=== PATIENT | female | born 1950 | race Caucasian/White ===

== ENCOUNTER 2016-11-22 09:47 | Emergency (ER) | payer MEDICARE, BC ==
[2016-11-22] MEDS ORDERED: Aspirin 81 MG Tab.Chew PO ONE (10:12)
[2016-11-22] MEDS ORDERED: Nitroglycerin 0.4 MG Tab.SL SL ONE (11:01)
[2016-11-22] MEDS ORDERED: LORazepam 0.5 MG Tab PO ONE (11:32)
--- NOTE | 2016-11-22 11:38 | CR ---
Chest 1V Frontal HISTORY: No Clinical Info FINDINGS: Heart size within normal limits. Pulmonary vasculature within normal limits. No evidence fo r focal consolidation or cardiopulmonary process. IMPRESSION: No radiographic evidence for acute cardiopulmonary process.
[2016-11-22 11:50] VITALS: BP 129/80
--- NOTE | 2016-11-22 12:24 | EDM.PDOC ---
ED HPI GENERAL MEDICAL PROBLEM - General Chief Complaint: Chest Pain Stated Complaint: RAPID HEARTBEAT,LIGHTHEADED Time Seen by Provider: 11/22/16 10:10 Source of Information: Reports: Patient, Family History Limitations: Reports: No Limitations - History of Present Illness INITIAL COMMENTS - FREE TEXT/NARRATIVE: pt arrived with tightness in her chest. She has some tightness in her head. She has been alot of stress in the last week to 10 days. Duration: Day(s):, Other ( started on saturday. ) Location: Reports: Chest Associated Symptoms: Reports: Other ( chest tightness. ) Chest Pain Score (Numeric/FACES): 3 - Related Data Allergies Allergy/AdvReac Type Severity Reaction Status Date / Time atorvastatin [From Lipitor] AdvReac Nausea Verified 11/22/16 10:57 levofloxacin AdvReac Nausea and Verified 11/22/16 10:57 Vomiting metronidazole AdvReac Nausea and Verified 11/22/16 10:57 Vomiting Home Meds: Home Meds Acetaminophen with Codeine [Tylenol with Codeine #4 Tablet] 1 tab PO Q4H PRN [History] Aspirin 1 tab PO DAILY 11/22/16 [History] Chlorthalidone 1 tab PO DAILY 11/22/16 [History] Cyclobenzaprine [Flexeril] 10 mg PO TID PRN 11/22/16 [History] Estradiol 0.5 mg PO DAILY 11/22/16 [History] Gabapentin [Neurontin] 900 mg PO BEDTIME 11/22/16 [History] Lisinopril [Prinivil] 1 tab PO DAILY 11/22/16 [History] Methylcellulose [Citrucel] 1 tbsp PO DAILY 11/22/16 [History] Naproxen 1 tab PO BID 11/22/16 [History] Phenazopyridine [Pyridium] 1 tab PO TID PRN 11/22/16 [History] Ranitidine [Zantac] 1 tab PO BID 11/22/16 [History] Simvastatin [Zocor] 10 mg PO DAILY 11/22/16 [History] diphenhydrAMINE [Benadryl] 1 tab PO ASDIRECTED PRN 11/22/16 [History] metFORMIN [Glucophage] 1 tab PO BID 11/22/16 [History] rOPINIRole [Requip] 0.5 mg PO BEDTIME 11/22/16 [History] Past Medical History HEENT History: Reports: Impaired Vision Cardiovascular History: Reports: Hypertension Gastrointestinal History: Reports: Irritable Bowel Syndrome Genitourinary History: Reports: UTI, Recurrent 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: Neurological History: Reports: Migraines Endocrine/Metabolic History: Reports: Diabetes, Type II Oncologic (Cancer) History: Reports: Basal Cell Carcinoma, Other (See Below) Other Oncologic History: melanoma on back - Past Surgical History GI Surgical History: Reports: Appendectomy Female Surgical History: Reports: Section, Hysterectomy Musculoskeletal Surgical History: Reports: Other (See Below) Other Musculoskeletal Surgeries/Procedures:: thumb joint surgery Social & Family History - Tobacco Use Smoking Status *Q: Never Smoker - Alcohol Use Days Per Week of Alcohol Use: 3 Number of Drinks Per Day: 1 Total Drinks Per Week: 3 - Recreational Drug Use Recreational Drug Use: No ED ROS GENERAL - Review of Systems Review Of Systems: See Below Constitutional: Reports: No Symptoms HEENT: Reports: No Symptoms Respiratory: Reports: Other ( tightness in the chest. ) Cardiovascular: Reports: Palpitations Endocrine: Reports: No Symptoms GI/Abdominal: Reports: No Symptoms : Reports: No Symptoms Musculoskeletal: Reports: No Symptoms Skin: Reports: No Symptoms ED EXAM, GENERAL - Physical Exam Exam: See Below Free Text/Narrative:: pt arrived with tightness in her chest. This has been coming and going. She has been quite stressed this past week. Exam Limited By: No Limitations General Appearance: Alert, Anxious, Mild Distress Ears: Normal TMs Nose: Normal Inspection Throat/Mouth: Normal Inspection Head: Atraumatic Neck: Normal Inspection Respiratory/Chest: No Respiratory Distress Cardiovascular: Regular Rate, Rhythm GI/Abdominal: Soft, Non-Tender Rectal (Female) Exam: Deferred Extremities: Normal Inspection Neurological: Alert, Oriented, Normal Cognition Psychiatric: Normal Affect Course - Vital Signs Last Recorded V/S: Last Vital Signs Temp 36.4 C 11/22/16 10:07 Pulse 66 11/22/16 11:26 Resp 20 11/22/16 11:26 BP 129/80 11/22/16 11:26 Pulse Ox 95 11/22/16 11:26 - Orders/Labs/Meds Orders: Active Orders 24 hr Category Date Time Status EKG Documentation Completion [RC] ASDIRECTED Care 11/22/16 10:12 Active UA W/MICROSCOPIC [URIN] Urgent Lab 11/22/16 10:11 Uncollected EKG 12 Lead [EK] Routine Ther 11/22/16 10:12 Ordered Labs: Laboratory Tests 11/22/16 11/22/16 11/22/16 Range/Units 10:25 10:25 10:25 WBC 4.8 (4.5-11.0) K/uL RBC 4.17 (3.30-5.50) M/uL Hgb 12.5 (12.0-15.0) g/dL Hct 37.0 (36.0-48.0) % MCV 89 (80-98) fL MCH 30 (27-31) pg MCHC 34 (32-36) % Plt Count 198 (150-400) K/uL Neut % (Auto) 51 (36-66) % Lymph % (Auto) 35 (24-44) % [place] % (Auto) 9 H (2-6) % Eos % (Auto) 4 (2-4) % Baso % (Auto) 0 (0-1) % Sodium 136 L (140-148) mmol/L Potassium 3.4 L (3.6-5.2) mmol/L Chloride 102 (100-108) mmol/L Carbon Dioxide 27 (21-32) mmol/L Anion Gap 10.4 (5.0-14.0) mmol/L BUN 23 H (7-18) mg/dL Creatinine 1.0 (0.6-1.0) mg/dL Est Cr Clr Drug Dosing 47.14 mL/min Estimated GFR (MDRD) 55 L (>60) Glucose 149 H (74-106) mg/dL Calcium 8.9 (8.5-10.1) mg/dL Total Bilirubin 0.4 (0.2-1.0) mg/dL AST 23 (15-37) U/L ALT 19 (12-78) U/L Alkaline Phosphatase 45 L (46-116) U/L Creatine Kinase 113 (26-192) U/L Troponin I < 0.017 (0.000-0.056) ng/mL Total Protein 6.8 (6.4-8.2) g/dL Albumin 3.6 (3.4-5.0) g/dL Globulin 3.2 (2.3-3.5) g/dL Albumin/Globulin Ratio 1.1 L (1.2-2.2) Meds: Medications Discontinued Medications Generic Name Dose Route Start Last Admin Trade Name Deejay PRN Reason Stop Dose Admin Aspirin 324 mg 11/22/16 10:12 11/22/16 10:27 Aspirin PO 11/22/16 10:13 324 mg ONETIME ONE Administration Lorazepam 0.5 mg 11/22/16 11:32 11/22/16 11:44 Ativan PO 11/22/16 11:33 0.5 mg ONETIME ONE Administration Nitroglycerin 0.4 mg 11/22/16 11:01 11/22/16 11:06 Nitrostat SL 11/22/16 11:02 0.4 mg ONETIME ONE Administration - Re-Assessments/Exams Free Text/Narrative Re-Assessment/Exam: 11/22/16 12:39 pt arrived with tightness in her chest. Her ekg was neg. her cardiac enzymes were normal. Her chest xray did not reveal any infiltrate. Departure - Departure Time of Disposition: 12:24 Disposition: Home, Self-Care 01 Condition: Fair Clinical Impression: Chest pain, atypical Instructions: Nonspecific Chest Pain, [id number] Referrals: Osiel Chavez MD [Primary Care Provider] - Forms: ED Department Discharge Care Plan Goals: rtc for a exercise cardiolyte, ativan .5 1/2 to 1 tab q6h prn for anxiety. rtc if the heaviness should get worse. - My Orders Last 24 Hours: My Active Orders 11/22/16 10:11 UA W/MICROSCOPIC [URIN] Urgent 11/22/16 10:12 EKG Documentation Completion [RC] ASDIRECTED EKG 12 Lead [EK] Routine - Assessment/Plan Last 24 Hours: My Active Orders 11/22/16 10:11 UA W/MICROSCOPIC [URIN] Urgent 11/22/16 10:12 EKG Documentation Completion [RC] ASDIRECTED EKG 12 Lead [EK] Routine
== END 2016-11-22 12:35 | disposition home or self-care (01) ==
LOC: JP.ED 09:47
DX: R07.89 Other chest pain (principal); H54.7 Unspecified visual loss; I10 Essential (primary) hypertension; E11.9 Type 2 diabetes mellitus without complications; G43.909 Migraine, unspecified, not intractable, without status migrainosus; Z88.8 Allergy status to other drugs, medicaments and biological substances; Z88.1 Allergy status to other antibiotic agents; Z79.899 Other long term (current) drug therapy; Z87.440 Personal history of urinary (tract) infections
CPT/HCPCS: 36415; 71010; 80053; 82550; 84484; 85025; 93005; 99285; A9270; 93010; 99284

== ENCOUNTER 2019-09-06 10:40 | Emergency (ER) | payer MEDICARE, BC, OTHER ==
[2019-09-06 11:00] VITALS: BP 187/58; PULSE 69
--- NOTE | 2019-09-06 11:35 | EDM.PDOC ---
ED HPI GENERAL MEDICAL PROBLEM - General Chief Complaint: Bite:Animal, Insect Stated Complaint: INSECT STING/BITE SATURDAY RIGHT HAND SWELLING Time Seen by Provider: 09/06/19 10:58 Source of Information: Reports: Patient History Limitations: Reports: No Limitations - History of Present Illness INITIAL COMMENTS - FREE TEXT/NARRATIVE: This patient who has a history of T2DM was stung by a bee on her right hand on Saturday. She denies problems until yesterday when the hand started to swelling. She reports increasing swelling and redness. Her hand is stiff and painful. She has pain in the forearm. She reports intense itching. She is not taking antihistamines. She denies systemic symptoms, or respiratory problems. Right Hand Pain Score (Numeric/FACES): 4 - Related Data Allergies Allergy/AdvReac Type Severity Reaction Status Date / Time atorvastatin [From Lipitor] AdvReac Nausea Verified 09/06/19 11:02 levofloxacin AdvReac Nausea and Verified 09/06/19 11:02 Vomiting metronidazole AdvReac Nausea and Verified 09/06/19 11:02 Vomiting Home Meds: Home Meds Aspirin 1 tab PO DAILY 11/22/16 [History] Chlorthalidone 25 mg PO DAILY 11/22/16 [History] Cyclobenzaprine [Flexeril] 10 mg PO TID PRN 11/22/16 [History] Estradiol 0.5 mg PO DAILY 11/22/16 [History] Gabapentin [Neurontin] 900 mg PO BEDTIME 11/22/16 [History] Lisinopril [Prinivil] 20 mg PO DAILY 11/22/16 [History] Methylcellulose [Citrucel] 1 tbsp PO DAILY 11/22/16 [History] Naproxen 1 tab PO BID 11/22/16 [History] Phenazopyridine [Pyridium] 1 tab PO TID PRN 11/22/16 [History] Simvastatin [Zocor] 10 mg PO DAILY 11/22/16 [History] diphenhydrAMINE [Benadryl] 1 tab PO ASDIRECTED PRN 11/22/16 [History] metFORMIN [Glucophage] 1,000 mg PO BID 11/22/16 [History] Pantoprazole Sodium [Protonix] 40 mg PO DAILY 09/06/19 [History] Past Medical History HEENT History: Reports: Glaucoma, Impaired Vision Cardiovascular History: Reports: Hypertension Gastrointestinal History: Reports: Irritable Bowel Syndrome Genitourinary History: Reports: UTI, Recurrent 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: Neurological History: Reports: Migraines Endocrine/Metabolic History: Reports: Diabetes, Type II Oncologic (Cancer) History: Reports: Basal Cell Carcinoma, Other (See Below) Other Oncologic History: melanoma on back - Past Surgical History GI Surgical History: Reports: Appendectomy Female Surgical History: Reports: Section, Hysterectomy Musculoskeletal Surgical History: Reports: Other (See Below) Other Musculoskeletal Surgeries/Procedures:: thumb joint surgery Social & Family History - Tobacco Use Smoking Status *Q: Never Smoker - Caffeine Use Caffeine Use: Reports: Coffee - Recreational Drug Use Recreational Drug Use: No ED ROS GENERAL - Review of Systems Review Of Systems: See Below Constitutional: Denies: Fever, Chills HEENT: Denies: Throat Swelling Respiratory: Denies: Shortness of Breath, Wheezing, Cough Cardiovascular: Denies: Chest Pain, Dyspnea on Exertion GI/Abdominal: Denies: Nausea, Vomiting Skin: Reports: Other (right hand is swollen, red and painful) Psychiatric: Reports: No Symptoms Immunologic: Denies: Anaphylaxis ED EXAM, ANIMAL BITE - Physical Exam Exam: See Below Exam Limited By: No Limitations General Appearance: Alert, WD/WN, No Apparent Distress Extremities: Other (right hand is puffy. No bee stinger found. Her hand is warm and redness is very diffuse. No lymphangitis. ) Neurological: Alert, Oriented. No: Sensory/Motor Deficit Course - Vital Signs Text/Narrative:: She was seen and examined. She has normal vital signs and no resp distress. She has a localized allergic reaction without systemic signs or symptoms. She is immunodepressed because of T2DM so I am covering her with antibiotics, but feel she will benefit most from elevation, ice and antihistamines. She will follow up with her primary care provider as needed. Last Recorded V/S: Last Vital Signs Temp 36.2 C 09/06/19 11:00 Pulse 69 09/06/19 11:00 Resp 18 09/06/19 11:00 BP 187/58 H 09/06/19 11:00 Pulse Ox 97 09/06/19 11:00 Departure - Departure Time of Disposition: 11:30 Disposition: Home, Self-Care 01 Condition: Good Clinical Impression: Swelling of right hand - Discharge Information *PRESCRIPTION DRUG MONITORING PROGRAM REVIEWED*: No *COPY OF PRESCRIPTION DRUG MONITORING REPORT IN PATIENT DARSHAN: No Referrals: Osiel Chavez MD [Primary Care Provider] - Forms: ED Department Discharge Additional Instructions: Elevate right hand at level of heart. Use an ice pack periodically for 20 minutes at a time to reduce swelling and discomfort. Take Benadryl at night and Claritin (or Zyrtec) during the day for itching. Take Keflex as directed as a precaution for infection. See your doctor if you are concerned or return to the ER as needed for problems. Sepsis Event Note (ED) - Evaluation Sepsis Screening Result: No Definite Risk - Focused Exam Vital Signs: Vital Signs Temp Pulse Resp BP Pulse Ox 09/06/19 11:00 36.2 C 69 18 187/58 H 97 09/06/19 10:58 36.2 C 69 18 187/58 H 97
== END 2019-09-06 11:59 | disposition home or self-care (01) ==
LOC: JP.ED 10:40
DX: M79.89 Other specified soft tissue disorders (principal); E11.9 Type 2 diabetes mellitus without complications; I10 Essential (primary) hypertension; G43.909 Migraine, unspecified, not intractable, without status migrainosus; Z88.8 Allergy status to other drugs, medicaments and biological substances; Z88.1 Allergy status to other antibiotic agents; Z79.82 Long term (current) use of aspirin; Z79.899 Other long term (current) drug therapy
CPT/HCPCS: 99282

== ENCOUNTER 2020-05-09 06:57 | Day surgery (SDC) | payer MEDICARE, BC, OTHER ==
[2020-05-09] MEDS ORDERED: Dextrose 5%-Lactated Ringers 1,000 ML IV SCH (07:45)
[2020-05-09 09:50] VITALS: BP 153/84; PULSE 60
--- NOTE | 2020-05-11 11:20 | OR ---
DATE OF PROCEDURE: 05/09/2020 SURGEON: Samuel Barrios MD PREOPERATIVE DIAGNOSIS: Persistent globus sensation. POSTOPERATIVE DIAGNOSES: 1. Persistent globus sensation associated with small hiatal hernia, but with wide-open esophagogastric junction and moderately active gastroesophageal reflux disease. 2. Mild patchy antral gastritis. OPERATIVE PROCEDURE: Upper gastrointestinal endoscopy with: 1. Biopsies of esophagogastric junction for histologic evaluation. 2. Biopsies of antrum for CLOtest. ANESTHESIA: IV sedation. INDICATIONS FOR PROCEDURE: A 70-year-old female presenting with some protracted history of persistent globus sensation. She presently is on Protonix and in the past has had severe enough throat symptoms to require some short courses of steroids. She does have a history of type 2 diabetes mellitus, but does not give history suggestive of a delayed gastric emptying. In the past, she has seen Dr. Christian of the ENT department who felt that her reflux disease is likely contributing to the patient's symptoms. For further evaluation, the patient is to undergo an upper GI endoscopy with biopsies as indicated. Potential risks including bleeding and perforation were discussed, and the patient wishes to proceed. DETAILS OF PROCEDURE: The patient was taken to the operating room and placed in a left lateral decubitus position. IV sedation was administered, after which the upper GI endoscope was passed orally through the length of the esophagus, into the stomach with retroflexion view of the fundus, thereafter through the pyloric channel and into the junction of the third and fourth portions of the duodenum. Findings included some mild redness in the hypopharynx and larynx. Otherwise, there were no gross anatomic abnormalities visualized in this area. The upper esophageal sphincter and esophageal body were unremarkable. At the EG junction, the patient had a roughly 2 cm hiatal hernia. This was associated with an essentially wide-open gastroesophageal junction as viewed from the distal esophagus. This was associated with some edema, friability, and slight upward extension of gastroesophageal junction mucosal line above the upper gastric folds. No erosions, ulcers, or stricturing was noted and there was no plaquing or other suggestion of neoplastic changes. Within the stomach, retroflexion confirmed the small hiatal hernia. Otherwise, there were some patchy reddened areas in the antrum without erosions or ulcers. The pyloric channel was wide open. The visualized portions of the duodenum were unremarkable. At this point, biopsies were obtained from the antrum and sent for CLOtest for H. pylori. Multiple circumferential biopsies targeting the area of columnar mucosa were obtained and sent for histologic evaluation. Minimal bleeding from the biopsy sites was seen and there were no evident complications. One additional note is that again there was no retained food or significant bile within the stomach, i.e. no endoscopic evidence of delayed gastric emptying was present. The plan at this point will be to have the patient follow up with Dr. Christian as has been previously scheduled next Saturday. If there is no other explanation or obvious treatment for the patient's reflux, the next step given the significance of her symptoms would be a Flakito fundoplication. We will see the patient the following Saturday, i.e. on 05/18/2020 after the appointment with Dr. Christian. Samuel Barrios MD /[id number]
== END 2020-05-09 10:20 | disposition home or self-care (01) ==
LOC: JP.SDS 06:57
PROVIDERS: ATTEND Surgery
DX: K21.00 Gastro-esophageal reflux disease with esophagitis, without bleeding (principal); K44.9 Diaphragmatic hernia without obstruction or gangrene; K29.50 Unspecified chronic gastritis without bleeding; K22.8 Other specified diseases of esophagus; I10 Essential (primary) hypertension; E78.5 Hyperlipidemia, unspecified; E11.9 Type 2 diabetes mellitus without complications; Z88.1 Allergy status to other antibiotic agents
CPT/HCPCS: 43239; 87081; J7121

== ENCOUNTER 2020-05-24 08:15 | Inpatient (IN) | payer MEDICARE, BC, OTHER ==
[2020-06-03] MEDS ORDERED: Acetaminophen 500 MG Tab PO ONE (10:00)
[2020-06-03] MEDS ORDERED: Scopolamine 1.5 MG Transdermal Patch TRDERM SCH (10:00)
[2020-06-03] MEDS ORDERED: Dextrose 5%-Lactated Ringers 1,000 ML IV SCH (10:30)
[2020-06-03] MEDS ORDERED: Midazolam 1 MG/ML 2 ML SDV ONE (10:33)
[2020-06-03] MEDS ORDERED: fentaNYL 100 MCG/2 ML SDV ONE ×3 (10:33→12:54)
[2020-06-03] MEDS ORDERED: Propofol 200 MG/20 ML SDV ONE (10:33)
[2020-06-03] MEDS ORDERED: Neostigmine Methylsulfate 1 MG/ML 5 ML Syringe ONE (10:34)
[2020-06-03] MEDS ORDERED: Ondansetron 4 MG/2 ML SDV ONE (10:34)
[2020-06-03] MEDS ORDERED: Rocuronium 50 MG/5 ML Vial ONE (10:34)
[2020-06-03] MEDS ORDERED: Glycopyrrolate 0.2 MG/ML 5 ML MDV ONE (10:34)
[2020-06-03] MEDS ORDERED: Dexamethasone 4 MG/ML SDV ONE (10:34)
[2020-06-03] MEDS ORDERED: Succinylcholine 200 MG/10 ML MDV ONE (10:34)
[2020-06-03] MEDS ORDERED: Albuterol/Ipratropium 3.0-0.5 MG/3 ML Neb Soln NEB ONE (11:00)
[2020-06-03] MEDS ORDERED: cefOXitin 2 GM in Sodium Chloride 0.9% 50 ML IV ONE (11:30)
[2020-06-03] MEDS ORDERED: Ketamine 50 MG in Sodium Chloride 0.9% 49.5 ML IV SCH (11:30)
[2020-06-03] MEDS ORDERED: Ketamine 500 MG/5 ML MDV IV SCH (11:30)
[2020-06-03] MEDS ORDERED: Sugammadex Sodium 200 MG/2 ML VIAL ONE (13:19)
[2020-06-03] MEDS ORDERED: Glucose Gel 15 GM in 37.5 GM Tube PO PRN (13:40)
[2020-06-03] MEDS ORDERED: Glucagon,Human Recombinant 1 MG Vial IM PRN (13:40)
[2020-06-03] MEDS ORDERED: 50% Dextrose in Water 50 ML Syringe IVPUSH PRN (13:40)
[2020-06-03] MEDS ORDERED: Ondansetron 4 MG/2 ML SDV IVPUSH PRN (14:42)
[2020-06-03] MEDS ORDERED: Albuterol 8 GM Inhaler INH PRN (14:44)
[2020-06-03] MEDS ORDERED: HYDROmorphone 1 MG/ML Syringe IV PRN (15:00)
[2020-06-03] MEDS: HYDROmorphone 0.5 MG/0.5 ML Syringe IVPUSH PRN ×2 (15:19→19:56)
[2020-06-03] MEDS: Metoclopramide 10 MG/2 ML SDV IVPUSH SCH ×2 (15:53→21:00)
[2020-06-03] MEDS: Acetaminophen 325 MG Tab PO SCH ×2 (15:54→21:00)
[2020-06-03] MEDS: Magnesium Sulfate/Water 2 GM/50 ML BAG IV SCH ×2 (15:54→21:02)
[2020-06-03] MEDS: Pantoprazole 40 MG Vial IV SCH (15:54)
[2020-06-03] MEDS: metFORMIN 500 MG Tab PO SCH (17:01)
[2020-06-03] MEDS: Insulin Lispro 100 Unit/ML 3 ML KwikPen SUBCUT PRN ×2 (17:02→21:33)
[2020-06-03] MEDS: ceFAZolin 1 GM in Premix Bag 1 BAG IV SCH (18:11)
[2020-06-03] MEDS: CRANBERRY 500 MG PO SCH (20:47)
[2020-06-03] MEDS: Gabapentin 300 MG Cap PO SCH (20:47)
[2020-06-03] MEDS: Timolol Maleate 0.5% Ophth Soln 5 ML Bottle EYEBOTH SCH (20:48)
[2020-06-03] MEDS: Melatonin 3 MG Tab PO SCH (20:48)
[2020-06-04] MEDS: ceFAZolin 1 GM in Premix Bag 1 BAG IV SCH ×2 (02:38→09:03)
[2020-06-04] MEDS: Metoclopramide 10 MG/2 ML SDV IVPUSH SCH ×4 (04:32→22:04)
[2020-06-04] MEDS: Magnesium Sulfate/Water 2 GM/50 ML BAG IV SCH ×3 (04:32→16:21)
[2020-06-04] MEDS: Acetaminophen 325 MG Tab PO SCH ×4 (04:33→22:05)
[2020-06-04] MEDS: HYDROmorphone 0.5 MG/0.5 ML Syringe IVPUSH PRN ×2 (04:37→07:40)
[2020-06-04] MEDS: metFORMIN 500 MG Tab PO SCH ×2 (08:43→17:20)
[2020-06-04] MEDS: Aspirin 81 MG Tab.EC PO SCH (08:44)
[2020-06-04] MEDS: Chlorthalidone 25 MG Tab PO SCH (08:44)
[2020-06-04] MEDS: Hypromellose 0.3% Ophth Soln 15 ML Bottle EYEBOTH SCH ×2 (08:44→08:49)
[2020-06-04] MEDS: Estradiol 0.5 MG Tab PO SCH (08:45)
[2020-06-04] MEDS: CRANBERRY 500 MG PO SCH (08:45)
[2020-06-04] MEDS: Timolol Maleate 0.5% Ophth Soln 5 ML Bottle EYEBOTH SCH ×2 (08:46→20:01)
[2020-06-04] MEDS: Simvastatin 20 MG Tab PO SCH (08:46)
[2020-06-04] MEDS: Lisinopril 20 MG Tab PO SCH (08:46)
[2020-06-04] MEDS: Insulin Lispro 100 Unit/ML 3 ML KwikPen SUBCUT PRN ×2 (08:56→11:53)
[2020-06-04] MEDS: oxyCODONE 5 MG Tab PO PRN ×4 (09:24→22:15)
[2020-06-04] MEDS: Pantoprazole 40 MG Vial IV SCH (16:17)
[2020-06-04] MEDS ORDERED: diphenhydrAMINE 50 MG/ML SDV IVPUSH PRN (18:27)
[2020-06-04] MEDS ORDERED: diphenhydrAMINE 25 MG Cap PO PRN (18:28)
[2020-06-04] MEDS: Melatonin 3 MG Tab PO SCH (20:01)
[2020-06-04] MEDS: Gabapentin 300 MG Cap PO SCH (20:01)
[2020-06-05] MEDS: Acetaminophen 325 MG Tab PO SCH ×2 (03:05→10:22)
[2020-06-05] MEDS: oxyCODONE 5 MG Tab PO PRN ×2 (03:05→12:08)
[2020-06-05] MEDS: Metoclopramide 10 MG/2 ML SDV IVPUSH SCH ×2 (03:05→10:12)
[2020-06-05 07:25] VITALS: BP 132/68; PULSE 64
[2020-06-05] MEDS ORDERED: Magnesium Hydroxide 400 MG/5 ML Susp 30 ML Cup PO PRN (07:41)
[2020-06-05] MEDS: metFORMIN 500 MG Tab PO SCH (08:28)
[2020-06-05] MEDS: Estradiol 0.5 MG Tab PO SCH (08:29)
[2020-06-05] MEDS: Simvastatin 20 MG Tab PO SCH (08:29)
[2020-06-05] MEDS: Chlorthalidone 25 MG Tab PO SCH (08:29)
[2020-06-05] MEDS: Lisinopril 20 MG Tab PO SCH (08:30)
[2020-06-05] MEDS: Aspirin 81 MG Tab.EC PO SCH (08:31)
[2020-06-05] MEDS: Timolol Maleate 0.5% Ophth Soln 5 ML Bottle EYEBOTH SCH (08:31)
--- NOTE | 2020-06-06 12:00 | PN ---
DATE OF SERVICE: 06/04/2020 The patient is postop day 1 from laparoscopic Flakito fundoplication with augmentation of the crural repair with some mesh and excision of mediastinal lipoma. Overnight, she has had no significant problems. Blood sugars have come down nicely, and she will be continued on her metformin. Otherwise, she tolerated liquids overnight satisfactorily. We will go up to full liquid diet today and oral pain medications, and she maybe ready for discharge home tomorrow. Samuel Barriso MD /[id number]
--- NOTE | 2020-06-06 12:30 | DISCH ---
FINAL DIAGNOSES: 1. Large paraesophageal diaphragmatic hernia with gastroesophageal reflux disease refractory to medical management. 2. Mediastinal lipoma. 3. History of hypertension. 4. History of hyperlipidemia. 5. History of type 2 diabetes mellitus. 6. Degenerative disk disease requiring a lumbar spine decompression. 7. History of glaucoma. 8. Hypomagnesemia. OPERATIVE PROCEDURES: Done on 06/03, diagnostic laparoscopy with: 1. Flakito fundoplication with repair of paraesophageal diaphragmatic hernia with mesh. 2. Excision of mediastinal lipoma. SUMMARY: This is a 70-year-old female presenting with ongoing gastroesophageal reflux disease. In her case, this presents to the large extent as globus sensation as well as throat irritation. ENT has been consulted and the consensus is that we are dealing with a reflux disease. This was confirmed endoscopically recently as well. The patient does have a history of type 2 diabetes mellitus, but we are not getting any sense of impaired gastric emptying at least at this time. On the date of admission, after full discussion with providers and the patient and her , the patient underwent a laparoscopic Flakito fundoplication. The diaphragmatic hernia was fairly large and it was augmented with a dissolvable mesh. Mediastinal lipoma was similarly excised. Postoperatively, she has had no significant problems. She is tolerating full liquid diet which was begun now for 3 days[address] Follow up with Dr. Barrios at [facility] on 06/15/2020. She will be continuing her usual medications plus oxycodone 5 mg q.4 hours p.r.n. pain #40, Tylenol 650 p.o. q.4 hours p.r.n. She will be instructed to stop her Pepcid and then to continue with Protonix for 1 week post discharge and then stop that with 2 doses of milk of magnesia to augment bowel activity. Magnesium oxide 400 mg p.o. daily x60 days. /[id number]
--- NOTE | 2020-06-09 13:37 | OR ---
DATE OF PROCEDURE: 06/03/2020 SURGEON: Samuel Barrios MD PREOPERATIVE DIAGNOSIS: Large paraesophageal hernia with gastroesophageal reflux disease refractory to medical management. POSTOPERATIVE DIAGNOSES: 1. Large paraesophageal hernia with gastroesophageal reflux disease refractory to medical management. 2. Mediastinal lipoma. OPERATIVE PROCEDURE: Diagnostic laparoscopy with: 1. Flakito fundoplication with repair of paraesophageal diaphragmatic hernia with mesh ([id number]). 2. Excision of mediastinal lipoma ([id number]). ANESTHESIA: General. REPAIRER TYPEWRITER: Gloria Coe PA-C. INDICATIONS FOR PROCEDURE: This is a 70-year-old female presenting with persistent globus sensation. The patient on workup appears to have gastroesophageal reflux disease as the likely underlying cause of this. Recent upper endoscopy confirmed inflammation and a large hiatal hernia, and further consultation with Dr. Christian of the Otolaryngology Department confirmed the impression that we are dealing with reflux disease as the underlying cause of her globus sensation and laryngopharyngeal dysphagia. After preop evaluation and discussion, the patient wished to proceed with a Flakito fundoplication. Potential risk including bleeding, infection, injury to underlying viscera in the area, problems with fundoplication such as dysphagia, gas bloat syndrome, disorders of gastric emptying rate, as well as possible incomplete relief of reflux symptoms were gone over, that symptoms such as globus sensation and laryngopharyngeal dysphagia are not necessarily thoroughly resolved by antireflux procedure and in some cases was also gone over, and the patient wishes to proceed. DETAILS OF PROCEDURE: The patient was taken to the operating room. After general endotracheal anesthesia was induced, was placed in a lithotomy position. The abdomen was then prepped and draped 15 cm inferior and 5 cm left of the xiphoid process. A transverse incision was made and peritoneal cavity was entered under direct vision with an Optiview trocar, inflated to 15 mmHg pressure with CO2. Laparoscope was then reinserted. No underlying trocar insertion site injuries were seen. Bilateral transversus abdominis plane blocks were then placed and 4 additional 5 mm trocars were placed across the upper and mid abdomen. The liver was then retracted anteriorly. As expected, the patient was noted to have significant paraesophageal diaphragmatic hernia with prolapse of perigastric fat, some gastric fundus and some omentum in a plane alongside the esophagus. This was reduced. The peritoneum overlying incised and reflected downward. During the course of the crural dissection, a mediastinal lipoma was encountered and this was excised and sent as separate specimen. Potentially, the crura was from the esophagus on each side and a retroesophageal window was established. There was quite a bit of edema in the area consistent with ongoing inflammation. Once roughly 4 to 5 cm segment of intraabdominal esophagus was established, the crural repair was accomplished with 0 Ethibond sutures, reinforced with PTFE pledgets. Due to the frailty of the crural musculature, Phasix ST mesh was then used to make the crural repair somewhat more densely scarred, it was being cut in a horseshoe configuration and laid over the crural repair and slightly along the esophagus on each side and was positioned and fixed there with some titanium tacking screws. At this point, the fundus was freed up from the short gastric vessels using Harmonic scalpel up to including the highest short gastric vessels. Once this was accomplished, the mobilized fundus was retrieved through the retroesophageal window. Guidewire was passed orally per Anesthesia across the esophagogastric junction into the stomach. Over this, a 54- [place] Savary dilator was positioned. A 2-cm 3-stitch fundoplication was then accomplished with 0 Ethibond sutures reinforced with PTFE pledgets. Two sutures were then placed between the fundoplication and the overlying diaphragm to help maintain its position over the distal esophagus. At that point, dilator and wire were removed and the patient was noted to have a satisfactory floppy-appearing fundoplication. Trocars were then removed. The peritoneal cavity deflated. Incisions were closed with some 4-0 Vicryl skin stitch. The patient was taken to the recovery room in satisfactory condition. Physician fleet administrative assistant, Gloria Coe, played an essential role in assisting in this case, helping to position the patient, retract structures as needed, as well as suturing and cutting sutures when indicated. Her presence improved the patient's safety and decreased operative time. Samuel Barrios MD /[id number]
== END 2020-06-05 13:05 | disposition home or self-care (01) | DRG 328 ==
LOC: JP.SDSSCHI 06-03 09:22 → JP.SDS 06-03 09:22 → EDSTATUS 06-03 13:25 → JP.MS 06-03 13:40
PROVIDERS: ADMIT Surgery; ATTEND Surgery
PROC: 0DQ44ZZ Repair Esophagogastric Junction, Percutaneous Endoscopic Approach (ICD-10-PCS; principal; 2020-06-03)
PROC: 0JB63ZZ Excision of Chest Subcutaneous Tissue and Fascia, Percutaneous Approach (ICD-10-PCS; principal; 2020-06-03)
PROC: 0BUT4JZ Supplement Diaphragm with Synthetic Substitute, Percutaneous Endoscopic Approach (ICD-10-PCS; principal; 2020-06-03)
DX: K44.9 Diaphragmatic hernia without obstruction or gangrene (principal); K21.9 Gastro-esophageal reflux disease without esophagitis; D17.4 Benign lipomatous neoplasm of intrathoracic organs; I10 Essential (primary) hypertension; E78.5 Hyperlipidemia, unspecified; E11.9 Type 2 diabetes mellitus without complications; H40.9 Unspecified glaucoma; E83.42 Hypomagnesemia; M51.36 Other intervertebral disc degeneration, lumbar region; L57.0 Actinic keratosis; E87.6 Hypokalemia; G43.909 Migraine, unspecified, not intractable, without status migrainosus; N32.81 Overactive bladder; M19.90 Unspecified osteoarthritis, unspecified site; M48.061 Spinal stenosis, lumbar region without neurogenic claudication; R32 Unspecified urinary incontinence; Z79.899 Other long term (current) drug therapy; Z79.84 Long term (current) use of oral hypoglycemic drugs; Z98.1 Arthrodesis status; Z90.49 Acquired absence of other specified parts of digestive tract; Z90.710 Acquired absence of both cervix and uterus
CPT/HCPCS: 36415; 80053; 82962; 83735; 83880; 84100; 85027; 88304; 94640; 94762; A9270-GY; C1713; C1781; C9113; J0171; J0330; J0690; J0694; J1100; J1170; J1815; J2250; J2405; J2704; J2710; J2765; J2795; J3010; J3475; J3480; J3490; J7120; J7121; J7620-GY

== ENCOUNTER 2020-08-12 07:29 | Day surgery (SDC) | payer MEDICARE, BC, OTHER ==
[2020-08-12] MEDS ORDERED: fentaNYL 100 MCG/2 ML SDV ONE (08:12)
[2020-08-12] MEDS ORDERED: Midazolam 1 MG/ML 2 ML SDV ONE (08:12)
[2020-08-12] MEDS ORDERED: Propofol 200 MG/20 ML SDV ONE (08:13)
[2020-08-12] MEDS ORDERED: Dextrose 5%-Lactated Ringers 1,000 ML IV SCH (08:15)
[2020-08-12 11:12] VITALS: BP 119/69; PULSE 60
--- NOTE | 2020-08-22 14:36 | OR ---
DATE OF PROCEDURE: 08/12/2020 SURGEON: Samuel Barrios MD PREOPERATIVE DIAGNOSIS: Indications for screening colonoscopy. POSTOPERATIVE DIAGNOSIS: Uncomplicated left colonic diverticulosis. OPERATIVE PROCEDURE: Flexible colonoscopy. ANESTHESIA: IV sedation. INDICATIONS FOR PROCEDURE: A 70-year-old female presenting for a screening colonoscopy. She has family or personal history of colon carcinoma or neoplasia. Plan is to proceed with a colonoscopy with biopsies and/or polypectomy as indicated. Potential risks including bleeding and perforation were discussed, and the patient wishes to proceed. DETAILS OF PROCEDURE: The patient was taken to the operating room and placed in the left lateral decubitus position. IV sedation was administered, after which the initial digital rectal exam was performed and was unremarkable. Colonoscope was then passed into the rectum with retroflexion revealing uncomplicated hemorrhoidal columns. Scope was eventually passed to the level of the cecum. The prep was generally quite good with only a small amount of liquid stool present. The patient had some uncomplicated left colonic diverticulosis. Otherwise, there were no areas of colitis and no polyps or other signs of neoplasia. The scope was then withdrawn, the above findings reconfirmed, and the procedure concluded. The patient was taken to the recovery room in satisfactory condition. Recommendation would be to repeat the colonoscopy in 10 years. Samuel Barrios MD /[id number]
== END 2020-08-12 11:17 | disposition home or self-care (01) ==
LOC: JP.SDS 07:29
PROVIDERS: ATTEND Surgery
DX: Z12.11 Encounter for screening for malignant neoplasm of colon (principal); K57.30 Diverticulosis of large intestine without perforation or abscess without bleeding; K64.9 Unspecified hemorrhoids; I10 Essential (primary) hypertension; E78.5 Hyperlipidemia, unspecified
CPT/HCPCS: G0121; J2250; J2704; J3010; J7121

== ENCOUNTER 2022-07-05 07:22 | Day surgery (SDC) | payer MEDICARE, BC, OTHER ==
[~2022-07-05 07:22] MED LIST: Propofol 200 MG/20 ML SDV ONE; fentaNYL 50 MCG/ML SDV ONE
[2022-07-05] MEDS ORDERED: Dextrose 5%-Lactated Ringers 1,000 ML IV SCH (08:00)
[2022-07-05 10:57] VITALS: BP 135/65; PULSE 65
== END 2022-07-05 11:10 | disposition home or self-care (01) ==
LOC: JP.SDS 07:22
PROVIDERS: ATTEND Surgery
DX: R13.13 Dysphagia, pharyngeal phase (principal); I10 Essential (primary) hypertension; E78.5 Hyperlipidemia, unspecified; K21.9 Gastro-esophageal reflux disease without esophagitis; E11.9 Type 2 diabetes mellitus without complications; Z88.2 Allergy status to sulfonamides; Z98.890 Other specified postprocedural states; Z88.1 Allergy status to other antibiotic agents; Z88.8 Allergy status to other drugs, medicaments and biological substances
CPT/HCPCS: 43248; J2704; J3010; J7121